=== PATIENT | male | born 1995 | race Caucasian/White ===

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

== ENCOUNTER 2020-09-21 15:23 | Emergency (ER) | payer BC ==
[2020-09-21] MEDS ORDERED: NS 1,000 ML IV ONE (15:45)
[2020-09-21 16:38] LABS: CPK CREATINE PHOSPHOKINASE 121 U/L (39-308); MYOGLOBIN 66 NG/ML (16-116)
[2020-09-21 19:44] VITALS: BP 143/64
--- NOTE | 2020-09-22 19:48 | ECGEPIP ---
[facility] - ED Test Date: 2020-09-21 Pat Name: YAHIR BARKER Department: Room: - Gender: Male Driver/Sales Workers: MAYA : 1995 Requested By: Radha Hanley Order Number: [id number] Reading MD: Radha Hanley Measurements Intervals [place] Rate: 52 P: 10 GA: 132 QRS: 43 QRSD: 102 T: 31 QT: 412 QTc: 383 Interpretive Statements Sinus bradycardia No prior Electronically Signed on 09-22-2020 19:47:40 EDT by Radha Hanley
== END 2020-09-21 19:46 | disposition home or self-care (01) ==
LOC: M ED 15:23
DX: T75.4XXA Electrocution, initial encounter (principal)